=== PATIENT | female | born 1980 | race Caucasian/White ===

== ENCOUNTER 2016-06-07 08:59 | Day surgery (SDC) | payer OTHER ==
[2016-06-07] MEDS ORDERED: INSULIN HUMAN REGULAR 1,000 UNITS/10 ML VIAL SQ PRN (09:45)
[2016-06-07] MEDS ORDERED: SODIUM CHLORID 0.9% 500 ML IV SCH (09:45)
[2016-06-07] MEDS ORDERED: METOPROLOL TARTRATE 25 MG TAB PO PRN (09:45)
[2016-06-07] MEDS ORDERED: LACTATED RINGER'S 1000 ML IV SCH (09:45)
[2016-06-07 10:08] LABS: BETA HCG QUANT LESS THAN 1 MIU/ML (0-5)
[2016-06-07] MEDS ORDERED: NITR0.4S SL (11:13)
--- NOTE | 2016-06-08 15:50 | EKG ---
Date Performed: 06/07/2016 Time Performed: 09:35:16 PTAGE: 35 years EKG: Sinus rhythm with borderline 1st degree A-V block Borderline ECG NO PREVIOUS TRACING DOCTOR: Dax Musa Interpretating Date/Time 06/08/2016 15:47:31
--- NOTE | 2016-06-17 08:22 | CF ---
cc: SANDRA ALBA INDICATION Migraine headaches, evaluation for patent foramen ovale. PROCEDURE PERFORMED Transesophageal echocardiogram. ANESTHESIA Sedation provided by Anesthesia. PROCEDURE After the patient was sedated by Anesthesia, the transesophageal probe was placed without difficulty. Tomographic images were obtained. Left ventricular function was preserved. Estimated ejection fraction was 65% with no segmental wall motion abnormalities. The left atrial appendage was visualized and there was no evidence of left atrial thrombus. The mitral valve was structurally normal. There was no evidence of mitral stenosis. There was evidence of trace mitral regurgitation. The aortic valve was structurally normal. There was no evidence of aortic stenosis or regurgitation. The tricuspid valve was structurally normal. There was no evidence of tricuspid stenosis or regurgitation. A bubble study was performed and there was no evidence of [id number] shunt. The descending thoracic aorta had no significant plaque. DIAGNOSIS 1. No evidence of patent foramen ovale. 2. Preserved left ventricular systolic function. 3. Trace mitral regurgitation. MD DAVE Yepez/ANA ROSA /11:42 AM /8:13 AM BIA
== END 2016-06-07 12:26 | disposition home or self-care (01) ==
LOC: HDIC 08:59 → HDOC 08:59
PROVIDERS: ATTEND Internal Medicine Interventional Cardiology
DX: Q21.1 Atrial septal defect (principal); G43.409 Hemiplegic migraine, not intractable, without status migrainosus; I20.9 Angina pectoris, unspecified; M54.2 Cervicalgia; R42 Dizziness and giddiness; R06.02 Shortness of breath; R00.2 Palpitations
CPT/HCPCS: 84702; 93005; 93312; 93320; 93325